=== PATIENT | male | born 1975 | race Caucasian/White ===

== ENCOUNTER 2020-05-11 12:46 | Emergency (ER) | payer MEDICARE, MEDICAID, SELFPAY ==
[2020-05-11 13:47] VITALS: BP 147/92; PULSE 56; RESP 17; TEMP 36.9; O2SAT 97; BMI 30.7
--- NOTE | 2020-05-11 14:25 | ED.WOUNDLAC ---
HPI - Wound/Laceration General Chief Complaint: Wound/Laceration Stated Complaint: suture removal Time Seen by Provider: 05/11/20 14:01 Source: patient Mode of arrival: ambulatory History of Present Illness HPI narrative: 44-year-old male presenting to ED for suture removal to left eyebrow/ chin. Reports fell down the stairs on 05/02, was seen at [facility] were had stitches placed. Denies complaints since wound repair. Denies fever, chills, drainage from area, redness Related Data Allergies Allergy/AdvReac Type Severity Reaction Status Date / Time No Known Allergies Allergy Mild NKA Verified 05/11/20 13:50 Review of Systems Review of Systems: Constitutional: No Weight loss, No Fever, No Chills Gastrointestinal: No Nausea, No Vomiting Musculoskeletal: No joint pain, No Myalgias, No Joint Swelling Skin: No Skin Lesions, No rash, +healing laceration Yes all other systems are reviewed and are negative [facility] Past Medical History Attestation statement: The following information was validated with the patient. Medical History (Updated 05/11/20 @ 14:25 by DRISS Lpoez) No known health problems Social History Social History Advance Directives: No Advance Directives Information Provided: No Physical Exam Vital Signs: Vital Signs: Vital Signs Temp Pulse Resp BP Pulse Ox 05/11/20 13:47 98.5 F 56 17 147/92 H 97 Body Mass Index 30.7 Const: General: cooperative and healthy appearing Orientation/consciousness: patient oriented x3 Limitations: no limitations HENMT: Other: 4 sutures intact to left upper eyelid/ eyebrow & Three sutures intact to chin. appropriate healing. No surrounding erythema, no fluctuance or induration Ears: hearing grossly normal bilaterally General nose exam: Normal external nose present Eyes: General: appearance normal, both eyes and all related structures EOM: EOMs intact bilaterally Neck: Neck: Yes normal visual inspection Neuro: General: patient oriented x3 Gait exam (Neuro): Normal gait present Extrem: General: Yes normal to inspection Discharge Plan Discharge Clinical Impression: Encounter for removal of sutures Patient Disposition: Home, Self-Care Instructions: Stitches Removal (ED) Additional Instructions: your sutures were removed today in the ED Keep area dry and clean You may apply bacitracin /Neosporin He should also apply anti scar cream likely dermal If area begins to look infected, is red, there is drainage, you fever return to the ED Referrals: Gavino Randall MD [Primary Care Provider] - 2 days
== END 2020-05-11 14:51 | disposition home or self-care (01) ==
PROVIDERS: Emergency Provider Emergency Medicine; PCP Internal Medicine
DX: Z48.02 Encounter for removal of sutures (principal); H57.12 Ocular pain, left eye
CPT/HCPCS: 99282

== ENCOUNTER 2020-07-14 10:17 | Inpatient (IN) | payer MEDICARE, MEDICAID, SELFPAY ==
[2020-07-14 10:30] VITALS: BP 147/94; PULSE 82; RESP 16; TEMP 36.9; O2SAT 98; BMI 24.2
[2020-07-14 15:37] LABS: MANUAL DIFF FLAG NO
[2020-07-14 15:39] LABS: Glucose Urine UA 100 MG/DL (NEG); Leukocyte Esterase Urine NEG (NEG); Nitrite Urine NEG (NEG); PH 5.5 (5.0-8.0); Specific Gravity - Urine >= 1.030 (1.005-1.025); Urine Blood NEG (NEG); Urine Ketones 5 MG/DL (NEG); Urine Protein TRACE MG/DL (NEG-TRACE)
[2020-07-14 15:41] LABS: Appearance Urine CLEAR; Color Urine AMBER
[2020-07-14 15:43] LABS: Basophils Percent Auto 0.1 % (0-2); Eosinophils Absolute Auto 0.2 X10*3/uL (0.0-0.4); Eosinophils Percent Auto 2.1 % (0-4); Hematocrit 44.9 % (42-52); Hemoglobin 15.1 g/dl (14.0-18.0); Imm Gran Abs Auto 0.03 X10*3/uL (0.00-0.03); Imm Gran Pct Auto 0.3 % (0.0-0.4); Lymphocytes Absolute Auto 2.7 X10*3/uL (1.2-4.9); Lymphocytes Percent Auto 31.5 % (20-40); Mean Corpuscular HGB Conc 33.6 g/dl (31.0-36.0); Mean Corpuscular Hemoglobin 31.4 pg (27.0-33.0); Mean Corpuscular Volume 93.3 fL (80-98); Mean Platelet Volume 10.1 fL (9.4-12.4); Monocytes Absolute Auto 0.8 X10*3/uL (0.1-1.2); Monocytes Percent Auto 8.7 % (2-11); Neutrophils Percent Auto 57.3 % (45-73); Platelet Count 260 X10*3/uL (160-400); Red Blood Count 4.81 X10*6/uL (4.60-5.80); Red Cell Distribution Width 14.6 % (11.0-16.0); White Blood Count 8.7 X10*3/uL (4.8-10.8)
[2020-07-14 16:02] LABS: Alanine Aminotransferase 423 U/L (0-40); Albumin Level 4.5 g/dL (3.5-5.0); Alkaline Phosphatase 326 U/L (39-117); Anion Gap 14 (12-20); Aspartate Amino Transferase 155 U/L (5-37); Bilirubin Total 14.3 mg/dL (0.0-1.0); Blood Urea Nitrogen 12 mg/dL (9-16); Calcium 9.2 mg/dL (8.4-10.2); Carbon Dioxide 30 mmol/L (22-29); Chloride 100 mmol/L (96-108); Creatinine Clr Calc Pharmacy 83.2; Estimated Glomerular Filt Rate > 60; Glucose Random 90 mg/dL (60-115); Potassium 3.8 mmol/l (3.3-5.1); Sodium 140 mmol/L (135-145); Total Protein 7.7 g/dL (6.5-8.0)
--- NOTE | 2020-07-14 18:22 | CT_ITS ---
EXAMINATION: CT ABDOMEN AND PELVIS WITH CONTRAST CLINICAL INFORMATION: 44-year-old male with elevated liver enzymes. Question gallstones. Question cirrhosis. COMPARISON: Abdominal ultrasound 04/23/[address] abdomen pelvis 12/08/2009 TECHNIQUE: Multidetector volumetric images were obtained from the superior aspect of the liver through the pubic symphysis following administration 85 mL of Omnipaque 350 intravenous contrast. Sagittal and coronal reformatted images were obtained on the technologist's workstation. This CT examination was performed using dose optimization techniques as appropriate, variously including the following: *Automated exposure control *Adjustment of mA and/or kV according to patient size (this includes techniques or standardized protocols for targeted exams where dose is matched to indication/reason for exam; i.e. extremities or head) *Use of iterative reconstruction technique DLP: 603 mGy-cm FINDINGS: Visualized lung bases demonstrate mild dependent atelectasis. Coronary artery calcifications are incompletely visualized. The liver demonstrates normal size, contour and attenuation. There is moderate intrahepatic ductal dilatation of the right and left hepatic lobes. There is significant dilatation of the common bile duct measuring up to 1.5 cm in diameter. The distal common bile duct abruptly transitions to normal caliber in the region of the pancreatic head (coronal image 45/96, series 7). There is mild dilatation of the proximal pancreatic duct. Questionable hypodense lesion of the uncinate process which measures approximately 2.5 x 2.5 cm (axial image 36/98, series 3). The gallbladder is relatively unremarkable in appearance. The spleen and adrenal glands are unremarkable. Symmetrically enhancing kidneys. No hydronephrosis bilaterally. Subcentimeter hypodensity within the upper pole of the left kidney is too small to accurately characterize. Normal caliber loops of small and large bowel. Normal appendix. Nonaneurysmal abdominal aorta. No gross retroperitoneal lymphadenopathy. The bladder is underdistended but grossly unremarkable. The prostate gland is normal in size. Small fat-containing right inguinal hernia. Shotty bilateral inguinal lymph nodes. No gross free pelvic fluid. Mild degenerative changes of the spine. CT/CT abdomen pelvis w con IMPRESSION: Moderate intra and extrahepatic biliary ductal dilatation with questionable mass of the pancreatic head. Further evaluation recommended with MRI/MRCP versus ERCP. Neoplasm not excluded.
[2020-07-14 18:23] VITALS: BP 138/108; PULSE 80; RESP 18; O2SAT 97
--- NOTE | 2020-07-14 18:31 | ED_ITS ---
HPI - Abdominal Pain General Chief Complaint: Abdominal Pain Stated Complaint: abd pain, per pt skin yellow Time Seen by Provider: 07/14/20 18:16 Source: patient Mode of arrival: ambulatory Limitations: no limitations History of Present Illness HPI narrative: Patient presents to ED for yellowish discoloration of skin and yellowish eyes. Patient states also mild abdominal pain. Patient denies any fever, or chills. Patient does acts admits to mild diarrhea. Patient states no history of alcohol abuse. Patient states he only drinks on the weekend. MD elicited complaint: abdominal pain Related Data Home Medications Medication Instructions Recorded Confirmed No Known Home Meds 07/14/20 07/14/20 Allergies Allergy/AdvReac Type Severity Reaction Status Date / Time No Known Allergies Allergy Mild NKA Verified 05/11/20 13:50 Review of Systems Review of Systems Yes all other systems are reviewed and are negative Constitutional: Reports as per HPI and Reports no additional constitutional complaints Eyes: Reports as per HPI and Reports no additional eye complaints Comments: Yellow eyes Reports system reviewed and no additional complaints, except as documented and Reports as per HPI Cardiovascular: Reports as per HPI and Reports no additional cardiovascular complaints Respiratory: Reports as per HPI and Reports no additional respiratory complaints Gastrointestinal: Reports as per HPI and Reports no additional gastrointestinal complaints Musculoskeletal: Reports no additional musculoskeletal complaints and Reports as per HPI Reports system reviewed and no additional complaints, except as documented and Reports as per HPI Psychiatric: Reports no additional psychiatric complaints and Reports as per HPI Physical Exam Vital Signs: Vital Signs: Last Vital Signs Temp 98.5 F 07/14/20 10:30 Pulse 80 07/15/20 00:00 Resp 18 07/15/20 00:00 BP 145/90 H 07/15/20 00:00 Pulse Ox 96 07/15/20 00:00 Body Mass Index 24.2 Const: General: cooperative, healthy appearing, comfortable, no acute distress, well developed, alert, awake and Physically active Orientation/consciousness: patient oriented x3 HENMT: Head: Yes normal to inspection and Yes No palpable skull fracture present Eyes: Other: Patient eyes are icteris Neck: Neck: Yes normal visual inspection, Yes full ROM, Yes no lymphadenopathy, Yes no meningeal signs, Yes trachea midline, Yes supple and No tender Chest: Chest palpation & inspection: normal inspection of the chest and normal palpation of entire chest wall Resp: Effort & Inspection: normal respiratory effort and able to speak in complete sentences Auscultation: clear to auscultation bilaterally Cardio: Jugular venous distension: no JVD Heart sounds: S1 normal heart sound present and S2 normal heart sound present GI: Other: Abdomen nondistended. Negative for any pinpoint tenderness Inspection: Yes normal to inspection and No abdominal wall ecchymosis Palpation (GI): Soft to palpation, not firm, nontender, no guarding and not rigid : General: No CVA tenderness and Yes no CVA tenderness Back/Spine/Pelvis: Back: no CVA tenderness, No CVA tenderness and No back tenderness Skin: Other: Skin is jaundice Neuro: General: patient oriented x3, gait normal, no meningeal signs and CN's II-XI intact bilaterally Cranial nerves: Yes CN's II-XII intact bilaterally Extrem: General: Yes normal to inspection and Yes full ROM Psych: Appearance: grossly normal, well kempt and not disheveled Course Course Course Narrative: Patient is not in distress. Patient liver enzymes elevated. Patient will be sent for abdominal CT scan to rule out any gallstones, cholecystitis, cirrhosis, pancreatitis. His stools are Dariana hepatitis panel will be sent. Patient not any distress. Not suspecting SBP Reevaluation(s) Reevaluation #1: Patient labs show elevated liver enzymes. Patient sent for CT scan to rule out any cholecystitis. CT scan abdomen shows CBD dilation with pancreatic mass. Spoke with Dr. Croft of gastroenterology who recommends patient be admitted to the hospital for ERCP in the morning. Case and accepted by hospitalist. Patient will have COVID swab. Patient given morphine for pain. Time: 00:50 MDM - Abdominal Pain MDM Narrative Medical decision making narrative: Common bile duct dilatation. Jaundice Lab Data Result diagrams: 07/14/20 15:30 07/14/20 15:30 Labs: Lab Results 07/14/20 07/14/20 07/14/20 Range/Units 15:30 15:30 15:30 WBC 8.7 (4.8-10.8) X10*3/uL RBC 4.81 (4.60-5.80) X10*6/uL Hgb 15.1 (14.0-18.0) g/dl Hct 44.9 (42-52) % MCV 93.3 (80-98) fL MCH 31.4 (27.0-33.0) pg MCHC 33.6 (31.0-36.0) g/dl RDW 14.6 (11.0-16.0) % Plt Count 260 (160-400) X10*3/uL MPV 10.1 (9.4-12.4) fL Immature Gran % (Auto) 0.3 (0.0-0.4) % Neut % (Auto) 57.3 (45-73) % Lymph % (Auto) 31.5 (20-40) % [place] % (Auto) 8.7 (2-11) % Eos % (Auto) 2.1 (0-4) % Baso % (Auto) 0.1 (0-2) % Lymph # (Auto) 2.7 (1.2-4.9) X10*3/uL [place] # (Auto) 0.8 (0.1-1.2) X10*3/uL Eos # (Auto) 0.2 (0.0-0.4) X10*3/uL Baso # (Auto) 0.0 (0.0-0.2) X10*3/uL Abs Immat Gran (auto) 0.03 (0.00-0.03) X10*3/uL Absolute Neuts (auto) 5.0 (2.0-8.3) X10*3/uL Absolute Nucleated RBC 0.000 (0.0-0.012) X10*3/uL Nucleated RBC % (auto) 0.0 (0.0-0.2) /100WBC PT 12.9 (10.8-13.0) SEC INR 1.1 (0.9-1.1) APTT 39.1 H (24.1-38.0) SEC Hold Blue Top SEE NOTE Sodium 140 (135-145) mmol/L Potassium 3.8 (3.3-5.1) mmol/l Chloride 100 (96-108) mmol/L Carbon Dioxide 30 H (22-29) mmol/L Anion Gap 14 (12-20) BUN 12 (9-16) mg/dL Creatinine 1.00 (0.5-1.4) mg/dL Estim Creat Clear Calc 83.2 Estimated GFR > 60 Random Glucose 90 (60-115) mg/dL Calcium 9.2 (8.4-10.2) mg/dL Total Bilirubin 14.3 H (0.0-1.0) mg/dL AST 155 H (5-37) U/L ALT 423 H (0-40) U/L Alkaline Phosphatase 326 H (39-117) U/L Total Protein 7.7 (6.5-8.0) g/dL Albumin 4.5 (3.5-5.0) g/dL Urine Color Urine Appearance Urine pH (5.0-8.0) Ur Specific [place] (1.005-1.025) Urine Protein (NEG-TRACE) MG/DL Urine Glucose (UA) (NEG) MG/DL Urine Ketones (NEG) MG/DL Urine Blood (NEG) Urine Nitrite (NEG) Ur Leukocyte Esterase (NEG) 07/14/20 Range/Units 15:30 WBC (4.8-10.8) X10*3/uL RBC (4.60-5.80) X10*6/uL Hgb (14.0-18.0) g/dl Hct (42-52) % MCV (80-98) fL MCH (27.0-33.0) pg MCHC (31.0-36.0) g/dl RDW (11.0-16.0) % Plt Count (160-400) X10*3/uL MPV (9.4-12.4) fL Immature Gran % (Auto) (0.0-0.4) % Neut % (Auto) (45-73) % Lymph % (Auto) (20-40) % [place] % (Auto) (2-11) % Eos % (Auto) (0-4) % Baso % (Auto) (0-2) % Lymph # (Auto) (1.2-4.9) X10*3/uL [place] # (Auto) (0.1-1.2) X10*3/uL Eos # (Auto) (0.0-0.4) X10*3/uL Baso # (Auto) (0.0-0.2) X10*3/uL Abs Immat Gran (auto) (0.00-0.03) X10*3/uL Absolute Neuts (auto) (2.0-8.3) X10*3/uL Absolute Nucleated RBC (0.0-0.012) X10*3/uL Nucleated RBC % (auto) (0.0-0.2) /100WBC PT (10.8-13.0) SEC INR (0.9-1.1) APTT (24.1-38.0) SEC Hold Blue Top Sodium (135-145) mmol/L Potassium (3.3-5.1) mmol/l Chloride (96-108) mmol/L Carbon Dioxide (22-29) mmol/L Anion Gap (12-20) BUN (9-16) mg/dL Creatinine (0.5-1.4) mg/dL Estim Creat Clear Calc Estimated GFR Random Glucose (60-115) mg/dL Calcium (8.4-10.2) mg/dL Total Bilirubin (0.0-1.0) mg/dL AST (5-37) U/L ALT (0-40) U/L Alkaline Phosphatase (39-117) U/L Total Protein (6.5-8.0) g/dL Albumin (3.5-5.0) g/dL Urine Color [place] Urine Appearance CLEAR Urine pH 5.5 (5.0-8.0) Ur Specific [place] >= 1.030 H (1.005-1.025) Urine Protein TRACE (NEG-TRACE) MG/DL Urine Glucose (UA) 100 H (NEG) MG/DL Urine Ketones 5 (NEG) MG/DL Urine Blood NEG (NEG) Urine Nitrite NEG (NEG) Ur Leukocyte Esterase NEG (NEG) Discharge Plan Discharge Clinical Impression: Jaundice, Common bile duct dilatation Patient Disposition: Admitted As Inpatient [facility] Past Medical History Medical History Asthma Social History Social History Alcohol intake: current Alcohol intake frequency: a few times a week Alcohol type: beer and hard liquor Smoking Status: Current every day smoker Use of substances other than those prescribed or required for medical reasons: Yes Substance Use Type: Crack/Cocaine and Marijuana Advance Directives: No Advance Directives Information Provided: Yes
--- NOTE | 2020-07-14 18:31 | PC.NURSE ---
Patient reports two weeks of abdominal pain, worsening over last day. Reports fall one month ago and concerned ever since. Reports hematuria. Abdomen distended and tender on palpation. Patient significantly jaundiced in skin and sclera. Reports drinking heavily on weekends but not a daily drinker. Respirations regular and even. IV established. Kristofer NAQVI at bedside to evaluate.
[2020-07-14] MEDS: 0.9 % Sodium Chloride 1,000 ML 999 ML IV (18:43)
[2020-07-14 18:51] LABS: INTERNATIONAL NORM RATIO 1.1 (0.9-1.1); Prothrombin Time 12.9 SEC (10.8-13.0)
[2020-07-14 18:53] LABS: Partial Thromboplastin Time 39.1 SEC (24.1-38.0)
[2020-07-14] MEDS: iohexoL 350 MG/ML 100 ML INFUS..BTL IV (18:57)
[2020-07-14 20:22] VITALS: BP 136/78; PULSE 78; RESP 16; O2SAT 97
--- NOTE | 2020-07-14 21:21 | PM.EVENT ---
Event Note Date of Service: 07/14/20 Event Note: GI Case discussed with DRISS Bailey. Consult to be done in AM. Presentation is c/w obstructive jaundice secondary to pancreatic head mass, not well defined on CT. Recommend: ERCP/stent tomorrow PM Obtain MRI/MRCP in am to further define pancreas head lesion. NPO after MN. Ca 19-9
[2020-07-14 22:00] VITALS: BP 148/85; PULSE 76; RESP 18; O2SAT 98
[2020-07-14 22:02] VITALS: RESP 18
[2020-07-14] MEDS: Morphine Sulfate 4 MG/ML CARTRIDGE IVPUSH (22:02)
[2020-07-14 23:07] VITALS: BP 120/66; PULSE 70; RESP 16; O2SAT 94
--- NOTE | 2020-07-14 23:36 | PM.IMHP ---
History of Present Illness Date of Service: 07/14/20 Chief Complaint: Jaundince, abdominal pain 44 year old man presented with jaundince. States his girlfriend noticed his skin was yellowing over last 3 days. He has no history of hepatitis and no IV drug use. No fevers/chills, nausea, vomiting. Does have some abdominal pain, though. Never had jaundice before. He does drink alcohol occasionally, states few beers and some nips on weekends but never to excess. No sick contacts with similar symptoms. Review of Systems Review of Systems: Yes all other systems are reviewed and are negative Constitutional: Comments: No fevers or chills Eyes: Comments: Scleral icterus ENT: Comments: No sore throat Cardiovascular: Comments: No chest pain Respiratory: Comments: Nno dyspnea Gastrointestinal: Gastrointestinal: Reports abdominal pain Musculoskeletal: Musculoskeletal: Reports no additional musculoskeletal complaints Psychiatric: Psychiatric: Reports no additional psychiatric complaints [facility] Medical History Asthma Social History Alcohol intake: current Alcohol intake frequency: a few times a week Alcohol type: beer and hard liquor Smoking Status: Current every day smoker Use of substances other than those prescribed or required for medical reasons: Yes Substance Use Type: Crack/Cocaine and Marijuana Advance Directives: No Advance Directives Information Provided: Yes Meds Allergies Allergy/AdvReac Type Severity Reaction Status Date / Time No Known Allergies Allergy Mild NKA Verified 05/11/20 13:50 Home Medications Medication Instructions Recorded Confirmed Type No Known Home Meds 07/14/20 07/14/20 History Physical Exam Vital Signs and Narrative: Vital Signs: Last Vital Signs Temp 98.5 F 07/14/20 10:30 Pulse 70 07/14/20 23:07 Resp 16 07/14/20 23:07 BP 120/66 07/14/20 23:07 Pulse Ox 94 07/14/20 23:07 Body Mass Index 24.2 Const: General: cooperative, comfortable and no acute distress HENMT: Head: Yes normal to inspection Eyes: Other: scleral icterus noted Neck: Yes normal visual inspection and Yes supple Chest: Chest palpation & inspection: normal inspection of the chest Resp: Effort & Inspection: normal respiratory effort Auscultation: clear to auscultation bilaterally Cardio: Rate: regular rate Rhythm: regular rhythm Heart sounds: S1 normal heart sound present and S2 normal heart sound present GI: Other: Soft, nondistended. Tender to palpation in epigastrum and bilataeral lower abdomen areas, normal bowel sounds Inspection: Yes normal to inspection Skin: Other: jaundiced Psych: Appearance: grossly normal Mental Status: mental status grossly normal Results Labs CBC and Chem 7: 07/14/20 15:30 07/14/20 15:30 Labs: Laboratory Results - last 24 hr 07/14/20 07/14/20 07/14/20 15:30 15:30 15:30 MCV 93.3 MCH 31.4 MCHC 33.6 RDW 14.6 Plt Count 260 MPV 10.1 Immature Gran % (Auto) 0.3 Neut % (Auto) 57.3 Lymph % (Auto) 31.5 [place] % (Auto) 8.7 Eos % (Auto) 2.1 Baso % (Auto) 0.1 Lymph # (Auto) 2.7 [place] # (Auto) 0.8 Eos # (Auto) 0.2 Baso # (Auto) 0.0 Abs Immat Gran (auto) 0.03 Absolute Neuts (auto) 5.0 Absolute Nucleated RBC 0.000 Nucleated RBC % (auto) 0.0 PT 12.9 INR 1.1 APTT 39.1 H Hold Blue Top SEE NOTE Anion Gap 14 Estim Creat Clear Calc 83.2 Estimated GFR > 60 Random Glucose 90 Calcium 9.2 Total Bilirubin 14.3 H AST 155 H ALT 423 H Alkaline Phosphatase 326 H Total Protein 7.7 Albumin 4.5 Urine Color Urine Appearance Urine pH Ur Specific [place] Urine Protein Urine Glucose (UA) Urine Ketones Urine Blood Urine Nitrite Ur Leukocyte Esterase 07/14/20 15:30 MCV MCH MCHC RDW Plt Count MPV Immature Gran % (Auto) Neut % (Auto) Lymph % (Auto) [place] % (Auto) Eos % (Auto) Baso % (Auto) Lymph # (Auto) [place] # (Auto) Eos # (Auto) Baso # (Auto) Abs Immat Gran (auto) Absolute Neuts (auto) Absolute Nucleated RBC Nucleated RBC % (auto) PT INR APTT Hold Blue Top Anion Gap Estim Creat Clear Calc Estimated GFR Random Glucose Calcium Total Bilirubin AST ALT Alkaline Phosphatase Total Protein Albumin Urine Color [place] Urine Appearance CLEAR Urine pH 5.5 Ur Specific [place] >= 1.030 H Urine Protein TRACE Urine Glucose (UA) 100 H Urine Ketones 5 Urine Blood NEG Urine Nitrite NEG Ur Leukocyte Esterase NEG Imaging Radiologist's Impressions: Impressions Abdomen/Pelvis CT 07/14/20 18:22 IMPRESSION: Moderate intra and extrahepatic biliary ductal dilatation with questionable mass of the pancreatic head. Further evaluation recommended with MRI/MRCP versus ERCP. Neoplasm not excluded. Assessment and Plan (1) Jaundice: Status: Acute 58 year old man with jaundice. Jaundice. Does have some pain but clinical picture is concerning given the CT scan findings of dilated bile duct. GI consult for ERCP placed to eval for obstruction and possible pancreatic neoplasm. Will trend LFTs and also check viral hepatitis labs. States regalado snot consume a lot of alcohol so doubt this is related to ETOH. NPo after midnight. Morphine prn pain. DVT proph SC Lovenox
[2020-07-15] VITALS (12 sets, daily range): BP systolic 131–155; BP diastolic 83–99; PULSE 59–80; RESP 16–20; TEMP 36.2–36.7; O2SAT 94–99; BMI 24.2
--- NOTE | 2020-07-15 | MR_ITS ---
EXAMINATION: MR ABDOMEN WITHOUT AND WITH CONTRAST CLINICAL INFORMATION: Question pancreatic head mass COMPARISON: Previous CT of the abdomen and pelvis from yesterday and abdominal ultrasound April 2013 TECHNIQUE: MR abdomen was performed without and with use of 7 mL intravenous Gadavist gadolinium contrast. Postcontrast images are performed in multiphase dynamic sequences. Imaging was performed in 3 planes. FINDINGS: LUNG BASES: The visualized lung bases are unremarkable. LIVER, GALLBLADDER, AND BILIARY TREE: The liver is normal in size, smooth in contour, and normal in signal. No focal hepatic lesion. There is moderate intra and extrahepatic biliary duct dilatation. The common bile duct measures up to 1.5 cm and is dilated down to the head of the pancreas. The gallbladder is upper normal in size. No gallstones are seen. The gallbladder wall does not appear thickened. PANCREAS: There is dilatation of the main pancreatic duct in the head of the pancreas measuring up to 6 mm. There is a area of heterogeneous signal in the head of the pancreas. This is low signal on T1-weighted sequences, slightly high signal on T2-weighted sequences and demonstrates decreased enhancement compared to the remainder of the pancreas. This measures up to 2.2 x 3.4 cm axial image 62 series 100 postcontrast and is continuous with the abnormal soft tissue signal adjacent to the SMA. The peripancreatic fat is otherwise normal. No peripancreatic fluid collection is seen. SPLEEN: Normal. ADRENAL GLANDS: Normal. KIDNEYS AND URETERS: The kidneys are normal in size, shape, and enhance symmetrically. There are small bilateral renal cysts largest measuring 1 cm exophytic to the upper pole of the left kidney. No hydronephrosis. No perinephric stranding. GASTROINTESTINAL TRACT: No bowel obstruction. No ascites or fluid collection. ABDOMINAL WALL: There is a small upper ventral hernia containing fat. LYMPH NODES: There are no enlarged lymph nodes. There is a small periportal lymph node that measures 7 x 10 mm for example axial image 43 postcontrast. There is no ascites. VASCULAR: Unremarkable. OSSEOUS STRUCTURES: Marrow signal normal. MR/MR abdomen wo/w con IMPRESSION: Intrahepatic and extrahepatic biliary duct dilatation and dilatation of the main pancreatic duct in the head of the pancreas. Upper normal-size gallbladder. Abnormal signal and enhancement in the uncinate process of the head of the pancreas measuring up to 2.2 x 3.4 cm. This is continuous with abnormal soft tissue that surrounds the SMA. Appearance is concerning for primary pancreatic neoplasm/adenocarcinoma of the pancreas. Differential would include focal pancreatitis.
[2020-07-15 01:06] LABS: Influenza A PCR NEGATIVE (Negative); Influenza B PCR NEGATIVE (Negative); Resp Syncy Virus RNA Qual PCR NEGATIVE (Negative); SARS COV2 PCR INHOUSE NEGATIVE (Negative)
[2020-07-15] MEDS: Morphine Sulfate 4 MG/ML CARTRIDGE IVPUSH ×3 (01:31→09:14)
--- NOTE | 2020-07-15 01:49 | PC.NURSE ---
pt teaching npo after midnight. pt states his pain level in improved down to a 6/10
[2020-07-15] MEDS: 0.9 % Sodium Chloride 1,000 ML 100 ML IVCONT (04:24)
[2020-07-15] MEDS: Enoxaparin Sodium 40 MG/0.4 ML SYRINGE SUBCUT (05:30)
[2020-07-15] MEDS: 0.9 % Sodium Chloride Flush 3 ML SYRINGE IVFLUSH (05:30)
[2020-07-15 07:19] LABS: Alanine Aminotransferase 311 U/L (0-40); Alkaline Phosphatase 259 U/L (39-117); Aspartate Amino Transferase 109 U/L (5-37); Bilirubin Total 11.9 mg/dL (0.0-1.0)
[2020-07-15 08:24] LABS: HBsAGNum1 0.14 S/CO (0.00-0.99); Hepatitis B Surface Antigen Negative (Negative); ~HepC Num1 0.07 S/CO (0.00-0.79); ~Hepatitis A Antibody IgM Nonreactive (Nonreactive); ~Hepatitis C Antibody Nonreactive (Nonreactive)
[2020-07-15 08:26] LABS: HBS Num1 0.94 mIU/mL (0-7.99); HBc Num1 0.19 S/CO (0.00-0.79); Hepatitis B Core Antibody Nonreactive (Nonreactive); ~Hepatitis B Surface Antibody NONREACTIVE (Nonreactive)
--- NOTE | 2020-07-15 08:55 | MHC.SHP ---
Pre-Procedural Eval Section A The patient is an INPATIENT: Yes Changes since office visit: No Cold of Flu in the past 2 weeks, No New Medical Problems, No Changes in Medication and No Patient answered all questions The History & Physical has been completed within 30 days and I have reviewed it.: Yes Section B Chief Complaint: Jaundice Allergies: Allergies Allergy/AdvReac Type Severity Reaction Status Date / Time No Known Allergies Allergy Mild NKA Verified 05/11/20 13:50 Plan I have reviewed the history and physical and performed a pertinent physical examination on my patient. No changes have occurred unless specified.
--- NOTE | 2020-07-15 08:55 | PM.EVENT ---
Event Note Date of Service: 07/15/20 Event Note: Patient seen and examined in MRI this am. Full note to follow. Discussed ERCP with stent placement. He is aware of risks and benefits and agrees to proceed.
--- NOTE | 2020-07-15 10:37 | HO.PM.IMPN ---
Subjective Subjective Date of Service: 07/15/20 Interval History: Seen in follow-up for jaundice, dilated CBD. Patient has persistent pain jaundice. Is plan for ERCP later today. Review of Systems Gen: no fever Resp: no sob, no cough CV: no chest, no CABA, no leg edema GI: No nausea vomiting but abdominal pain. Neuro: No confusion Physical Exam Vital Signs: Vital Signs: Last Vital Signs Temp 97.9 F 07/15/20 08:00 Pulse 73 07/15/20 08:00 Resp 18 07/15/20 08:00 BP 145/88 H 07/15/20 08:00 Pulse Ox 96 07/15/20 08:00 Body Mass Index 24.2 General: AO X 3, no acute distress HEENT: Sclerae icterus Resp: CTA bilateral CVS: S1,S2,RRR GI: +BS, white upper quadrant tenderness Skin: No rash--signs of jaundice Neuro: motor grossly intact Psych: appropriate affect Objective Data Current Medications Generic Name Dose Route Start Last Admin Trade Name Freq PRN Reason Stop Dose Admin Enoxaparin Sodium 40 mg 07/15/20 05:00 07/15/20 05:30 Enoxaparin Sodium 40 Mg/0.4 Ml Syringe SUBCUT 40 mg Q24H HOOD Administration Sodium Chloride 1,000 mls @ 100 mls/hr 07/15/20 04:04 07/15/20 04:24 Ns IVCONT 100 mls/hr .Q10H HOOD Administration Morphine Sulfate 2 mg 07/14/20 23:47 Morphine Sulfate 2 Mg/Ml Cartridge IVPUSH RQ4H PRN Pain, Moderate (Pain Scale 4-6 Morphine Sulfate 4 mg 07/14/20 23:47 07/15/20 09:14 Morphine Sulfate 4 Mg/Ml Cartridge IVPUSH 4 mg RQ4H PRN Administration Pain, Severe (Pain Scale 7-10) Sodium Chloride 3 ml 07/15/20 04:04 07/15/20 07:26 0.9 % Sodium Chloride Flush 3 Ml Syringe IVFLUSH Not Given QSHIFT HOOD Labs CBC & Chem 7: 07/14/20 15:30 07/14/20 15:30 Assessment and Plan (1) Jaundice: Status: Acute Assessment and Plan: 44/F year old man with jaundice. Jaundice. Does have some pain but clinical picture is concerning given the CT scan findings of dilated bile duct. GI will do ERCP today to eval for obstruction and possible pancreatic neoplasm vs choledocholithiasis. Will trend LFTs and also check viral hepatitis labs. States caba snot consume a lot of alcohol so doubt this is related to ETOH. Morphine for pain. DVT proph SC Lovenox
--- NOTE | 2020-07-15 11:25 | MHC.RECOVSUP ---
Recovery Support note: Patient is a 44 year old Ethiopian speaking male who [place] [facility] [place] due to [place]und[place] and was medically admitted. This director underwriter sales met with patient in [phone] to discuss his substance use. Patient reports occasional alcohol use, states he drinks about four beers on the weekend. Patient states his drinking is not problematic at this time and that if he did feel it was problematic, he has family and friends he can reach out to for support, specifically his sister. Patient reports he uses cocaine once in a million, meaning his cocaine use is extremely rare. Patient acknowledges that repeated use of substances can be detrimental to his health. Patient reports his cocaine use is so minimal that he does not feel it is problematic. Discussed case with patient's RN, Hoda.
[2020-07-15] MEDS: levoFLOXacin/D5W 500 MG/100 ML PIGGYBACK 100 MG IV (12:12)
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
--- NOTE | 2020-07-15 12:27 | FL_ITS ---
EXAMINATION: XR FLUOROSCOPY WITH IMAGES CLINICAL INFORMATION: Biliary and pancreatic ductal dilatation COMPARISON: MRI abdomen without and with contrast 07/15/2020 TECHNIQUE: Fluoroscopy performed by Dr. Price Croft. Fluoroscopy time: 3.9 minutes Total dose: 64.24 mGy Images: 1 FINDINGS: There is an endoscope in the right upper quadrant with short catheter in region of duct. FL/FL guidance in OR IMPRESSION: Fluoroscopy for gastroenterology procedure.
--- NOTE | 2020-07-15 12:41 | HO.ANESPROP2 ---
HPI - Anesthesia Eval Consult details Narrative: 44 M w/ polysubstance use d/o p/f ERCP under [facility] Past Medical History Medical History Asthma Social History Social History Household Members: Significant Other Housing: House Do you presently have visiting nurse or other home services: No Alcohol intake: current Alcohol intake frequency: a few times a week Alcohol type: beer and hard liquor Smoking Status: Current every day smoker Use of substances other than those prescribed or required for medical reasons: Yes Substance Use Type: Marijuana Have you been hit, kicked, punched, or otherwise hurt by someone within the past year? If so, by whom?: No Do you feel safe in your current relationship?: Yes Is there a partner from a previous relationship who is making you feel unsafe now?: No Are you made to feel afraid or neglected: No Advance Directives: No Advance Directives Information Provided: Yes Do you have thoughts of harming others: None Do you have a plan to hurt others: No Plan Recently lost weight without trying: No service: No Current occupational status: disabled Meds Allergies Allergy/AdvReac Type Severity Reaction Status Date / Time No Known Allergies Allergy Mild NKA Verified 05/11/20 13:50 Home Medications Medication Instructions Recorded Confirmed Type No Known Home Meds 07/14/20 07/14/20 History Exam Exam Date and Time: July 15, 2020 1241 Height,Weight and Vital Signs: Height 5 ft 6 in Weight 68.039 kg Last Vital Signs Temp 98.1 F 07/15/20 12:12 Pulse 59 07/15/20 12:12 Resp 16 07/15/20 12:12 BP 154/86 H 07/15/20 12:12 Pulse Ox 96 07/15/20 12:12 Pertinent Lab Results Pertinent Lab Results: Laboratory Tests 07/14/20 07/14/20 07/14/20 15:30 15:30 15:30 WBC 8.7 RBC 4.81 Hgb 15.1 Hct 44.9 MCV 93.3 MCH 31.4 MCHC 33.6 RDW 14.6 Plt Count 260 MPV 10.1 Immature Gran % (Auto) 0.3 Neut % (Auto) 57.3 Lymph % (Auto) 31.5 [place] % (Auto) 8.7 Eos % (Auto) 2.1 Baso % (Auto) 0.1 Lymph # (Auto) 2.7 [place] # (Auto) 0.8 Eos # (Auto) 0.2 Baso # (Auto) 0.0 Abs Immat Gran (auto) 0.03 Absolute Neuts (auto) 5.0 Absolute Nucleated RBC 0.000 Nucleated RBC % (auto) 0.0 PT 12.9 INR 1.1 APTT 39.1 H Hold Blue Top SEE NOTE Sodium 140 Potassium 3.8 Chloride 100 Carbon Dioxide 30 H Anion Gap 14 BUN 12 Creatinine 1.00 Estim Creat Clear Calc 83.2 Estimated GFR > 60 Random Glucose 90 Calcium 9.2 Total Bilirubin 14.3 H AST 155 H ALT 423 H Alkaline Phosphatase 326 H Total Protein 7.7 Albumin 4.5 Urine Color Urine Appearance Urine pH Ur Specific [place] Urine Protein Urine Glucose (UA) Urine Ketones Urine Blood Urine Nitrite Ur Leukocyte Esterase Coronavirus (PCR) Hepatitis A IgM Ab Hep Bs Antigen Hep Bs Antibody Hep B Core Total Ab Hepatitis C Ab (EIA) Influenza Type A (PCR) Influenza Type B (PCR) RSV RNA Qual (PCR) 07/14/20 07/15/20 07/15/20 15:30 00:12 05:56 WBC RBC Hgb Hct MCV MCH MCHC RDW Plt Count MPV Immature Gran % (Auto) Neut % (Auto) Lymph % (Auto) [place] % (Auto) Eos % (Auto) Baso % (Auto) Lymph # (Auto) [place] # (Auto) Eos # (Auto) Baso # (Auto) Abs Immat Gran (auto) Absolute Neuts (auto) Absolute Nucleated RBC Nucleated RBC % (auto) PT INR APTT Hold Blue Top Sodium Potassium Chloride Carbon Dioxide Anion Gap BUN Creatinine Estim Creat Clear Calc Estimated GFR Random Glucose Calcium Total Bilirubin 11.9 H AST 109 H ALT 311 H Alkaline Phosphatase 259 H D Total Protein Albumin Urine Color GALILEA Urine Appearance CLEAR Urine pH 5.5 Ur Specific [place] >= 1.030 H Urine Protein TRACE Urine Glucose (UA) 100 H Urine Ketones 5 Urine Blood NEG Urine Nitrite NEG Ur Leukocyte Esterase NEG Coronavirus (PCR) NEGATIVE Hepatitis A IgM Ab Hep Bs Antigen Hep Bs Antibody Hep B Core Total Ab Hepatitis C Ab (EIA) Influenza Type A (PCR) NEGATIVE Influenza Type B (PCR) NEGATIVE RSV RNA Qual (PCR) NEGATIVE 07/15/20 05:56 WBC RBC Hgb Hct MCV MCH MCHC RDW Plt Count MPV Immature Gran % (Auto) Neut % (Auto) Lymph % (Auto) [place] % (Auto) Eos % (Auto) Baso % (Auto) Lymph # (Auto) [place] # (Auto) Eos # (Auto) Baso # (Auto) Abs Immat Gran (auto) Absolute Neuts (auto) Absolute Nucleated RBC Nucleated RBC % (auto) PT INR APTT Hold Blue Top Sodium Potassium Chloride Carbon Dioxide Anion Gap BUN Creatinine Estim Creat Clear Calc Estimated GFR Random Glucose Calcium Total Bilirubin AST ALT Alkaline Phosphatase Total Protein Albumin Urine Color Urine Appearance Urine pH Ur Specific [place] Urine Protein Urine Glucose (UA) Urine Ketones Urine Blood Urine Nitrite Ur Leukocyte Esterase Coronavirus (PCR) Hepatitis A IgM Ab Nonreactive Hep Bs Antigen Negative Hep Bs Antibody NONREACTIVE Hep B Core Total Ab Nonreactive Hepatitis C Ab (EIA) Nonreactive Influenza Type A (PCR) Influenza Type B (PCR) RSV RNA Qual (PCR) Airway Mallampati Class: II TM Dist: >3cm Neck ROM: Full Loose/Missing/Broken Teeth: No Heart: RRR Lungs: NL Other: AO Assessment and Plan Assessment Anesthesia Assessment: Anesthesia Plan Discussed and Chart Reviewed Final Anesthetic Review NPO: Yes ASA Class: III Final Preanesthetic Review: No Changes in Pt Med Stat, Meds/Allgs Chart Reviewed, Consent Obtained/Reviewed and Anes Risks/Benef Reviewed Patient Risk: Intermediate Procedure Risk: Intermediate Anesthetic Plan Anesthetic Plan: GA Disposition: Standard PACU
--- NOTE | 2020-07-15 13:57 | PM.EVENT ---
Event Note Date of Service: 07/15/20 Event Note: ERCP note dictated CBD could not be accessed. Guidewire did enter pancreatic duct on several occasions, by fluoroscopy. No dye injection performed. Will plan on transfer to [facility] for repeat ERCP. Discussed with Dr Urbina at [facility].
--- NOTE | 2020-07-15 14:01 | PM.OP ---
Brief Operative Note Date of Service: 07/15/20 Pre-op diagnosis: pancereatic mass, obstructive jaundice. Post-op diagnosis: same Procedure: ERCP Surgeon: Price Croft Anesthesia: GETA Estimated blood loss (mL): 0 Pathology: none sent Condition: stable Disposition: PACU
--- NOTE | 2020-07-15 15:42 | PC.NURSE ---
P-patient will leave AMA I-dr. Leonard notified of the above E-patient made aware of need for antibiotics,
--- NOTE | 2020-07-15 15:54 | PM.DS ---
DS: Providers Provider Date of admission: 07/15/20 02:33 Primary care physician: Gavino Randall MD Consults: 07/14/20 23:47 Consult to Gastroenterology Routine Consulting Provider: Price Croft Reason for consultation: jaundice Has provider been notified: Yes 07/15/20 08:55 Consult to Care Team Routine Comment: Reason for consultation: etoh use with dx of jaundice, admitts to crack cocaine and marijuana DS: Diagnosis Discharge Diagnosis (1) Jaundice: Status: Acute (2) Common bile duct dilatation: Status: Acute DS: Medications Discharge Medications Home Medications: Home Medications Medication Instructions Recorded Confirmed No Known Home Meds 07/14/20 07/14/20 Previous Rx's Medication Instructions Recorded oxycodone 5 mg PO Q6H PRN #14 tab 07/15/20 DS: Summary Hospital Course Hospital Course: Patient was admitted because of obstructive jaundice. MRI showed Intrahepatic and extrahepatic biliary duct dilatation and dilatation of the main pancreatic duct in the head of the pancreas. Upper normal-size gallbladder. Abnormal signal and enhancement in the uncinate process of the head of the pancreas measuring up to 2.2 x 3.4 cm. This is continuous with abnormal soft tissue that surrounds the SMA. Appearance is concerning for primary pancreatic neoplasm/adenocarcinoma of the pancreas. Differential would include focal pancreatitis. Dr. Croft attempted ERCP but was unsucesfull and recommended that patient be transfer to [facility] for another attempt more resources. He refuses to stay in hospital or be transfer to [facility] and sign out again Medical exam. He was told of the risk of getting worse and possible becoming septic and even dying. He is sternly advised to come to ED or call 911 with fever, cofusion and increasing abdominal pain. Empiric Levaquin has been sent to the pharmacy for him. Time Spent with Patient Time attestation: Total time spent providing and/or coordinating discharge services: Physical Exam Vital Signs: Vital Signs: Last Vital Signs Temp 98 F 07/15/20 15:05 Pulse 73 07/15/20 15:05 Resp 18 07/15/20 15:05 BP 134/90 H 07/15/20 15:05 Pulse Ox 94 07/15/20 15:05 Body Mass Index 24.2 DS: Data Data Completed and Pending Labs on day of discharge: 07/14/20 15:30 Complete Blood Count Auto Diff Stat Comprehensive Met. Panel Stat Hold Lt Blue - Possible Coag Stat Partial Thromboplastin Time Stat Prothrombin Time INR Stat UA CC w/rflx Micro + Cult Stat 07/14/20 18:22 CT abdomen pelvis w con Stat 0.9 % Sodium Chloride [Ns] 1,000 ml IV 999 mls/hr 07/14/20 18:46 Add Laboratory Test Stat 07/14/20 18:57 iohexoL 350 MG/ML [Omnipaque 350 MG/ML] 100 ml IV ONCE ONE 07/14/20 21:59 Morphine Sulfate 4 mg IVPUSH ONCE STA 07/14/20 23:07 SARS-CoV2/FLU/RSV Stat 07/14/20 23:46 Transfer Order Routine 07/14/20 23:47 Alanine Aminotransferase Routine Alkaline Phosphatase Routine Aspartate Amino Transferase Routine Bilirubin Total Routine Hepatitis A,B,C Profile Stat 07/15/20 MR abdomen wo/w con Urgent 07/15/20 05:00 Enoxaparin Sodium [Lovenox] 40 mg SUBCUT Q24H 07/15/20 08:29 GadobutroL [Gadavist] 7.5 ml IVPUSH ONCE ONE 07/15/20 08:52 levoFLOXacin/D5W [Levaquin] 500 mg in 100 ml IV PREOP 07/15/20 12:01 levoFLOXacin/D5W [Levaquin] 500 mg in 100 ml IV As directed 07/15/20 12:27 Lidocaine HCl 2 % MPF [Xylocaine 2 % MPF] 5 ml .ROUTE .STK-MED ONE propofoL [Diprivan] 200 mg IVPUSH .STK-MED ONE 07/15/20 12:29 Midazolam HCl/PF [Versed] 2 mg .ROUTE .STK-MED ONE fentaNYL citrate/PF [Sublimaze] 50 mcg .ROUTE .STK-MED ONE 07/15/20 12:33 Glucagon,Human Recombinant [Glucagen] 1 mg .ROUTE .STK-MED ONE iohexoL 300 MG/ML [Omnipaque 300 MG/ML] 50 ml IV .STK-MED ONE 07/15/20 13:07 Phenylephrine HCL 1,000 mcg IVPUSH .STK-MED ONE dexAMETHasone sod phosphate [Decadron] 4 mg .ROUTE .STK-MED ONE ondansetron HCL [Zofran] 4 mg .ROUTE .STK-MED ONE propofoL [Diprivan] 200 mg IVPUSH .STK-MED ONE 07/15/20 13:14 Sugammadex Sodium [Bridion] 200 mg IVPUSH .STK-MED ONE 07/15/20 13:54 Transfer Order Routine Laboratory Last Values WBC 8.7 X10*3/uL (4.8-10.8) 07/14/20 15:30 RBC 4.81 X10*6/uL (4.60-5.80) 07/14/20 15:30 Hgb 15.1 g/dl (14.0-18.0) 07/14/20 15:30 Hct 44.9 % (42-52) 07/14/20 15:30 MCV 93.3 fL (80-98) 07/14/20 15: MCH 31.4 pg (27.0-33.0) 07/14/20 15: MCHC 33.6 g/dl (31.0-36.0) 07/14/20 15:30 RDW 14.6 % (11.0-16.0) 07/14/20 15:30 Plt Count 260 X10*3/uL (160-400) 07/14/20 15:30 MPV 10.1 fL (9.4-12.4) 07/14/20 15:30 Immature Gran % (Auto) 0.3 % (0.0-0.4) 07/14/20 15: Neut % (Auto) 57.3 % (45-73) 07/14/20 15:30 Lymph % (Auto) 31.5 % (20-40) 07/14/20 15:30 [place] % (Auto) 8.7 % (2-11) 07/14/20 15:30 Eos % (Auto) 2.1 % (0-4) 07/14/20 15: Baso % (Auto) 0.1 % (0-2) 07/14/20 15:30 Lymph # (Auto) 2.7 X10*3/uL (1.2-4.9) 07/14/20 15:30 [place] # (Auto) 0.8 X10*3/uL (0.1-1.2) 07/14/20 15:30 Eos # (Auto) 0.2 X10*3/uL (0.0-0.4) 07/14/20 15:30 Baso # (Auto) 0.0 X10*3/uL (0.0-0.2) 07/14/20 15:30 Abs Immat Gran (auto) 0.03 X10*3/uL (0.00-0.03) 07/14/20 15:30 Absolute Neuts (auto) 5.0 X10*3/uL (2.0-8.3) 07/14/20 15:30 Absolute Nucleated RBC 0.000 X10*3/uL (0.0-0.012) 07/14/20 15:30 Nucleated RBC % (auto) 0.0 /100WBC (0.0-0.2) 07/14/20 15:30 PT 12.9 SEC (10.8-13.0) 07/14/20 15:30 INR 1.1 (0.9-1.1) 07/14/20 15:30 APTT 39.1 SEC (24.1-38.0) H 07/14/20 15:30 Hold Blue Top SEE NOTE 07/14/20 15:30 Sodium 140 mmol/L (135-145) 07/14/20 15:30 Potassium 3.8 mmol/l (3.3-5.1) 07/14/20 15:30 Chloride 100 mmol/L (96-108) 07/14/20 15:30 Carbon Dioxide 30 mmol/L (22-29) H 07/14/20 15:30 Anion Gap 14 (12-20) 07/14/20 15:30 BUN 12 mg/dL (9-16) 07/14/20 15:30 Creatinine 1.00 mg/dL (0.5-1.4) 07/14/20 15:30 Estim Creat Clear Calc 83.2 07/14/20 15:30 Estimated GFR > 60 07/14/20 15:30 Random Glucose 90 mg/dL (60-115) 07/14/20 15:30 Calcium 9.2 mg/dL (8.4-10.2) 07/14/20 15:30 Total Bilirubin 11.9 mg/dL (0.0-1.0) H 07/15/20 05:56 AST 109 U/L (5-37) H 07/15/20 05:56 ALT 311 U/L (0-40) H 07/15/20 05:56 Alkaline Phosphatase 259 U/L (39-117) H D 07/15/20 05:56 Total Protein 7.7 g/dL (6.5-8.0) 07/14/20 15:30 Albumin 4.5 g/dL (3.5-5.0) 07/14/20 15:30 Urine Color GALILEA 07/14/20 15:30 Urine Appearance CLEAR 07/14/20 15:30 Urine pH 5.5 (5.0-8.0) 07/14/20 15:30 Ur Specific [place] >= 1.030 (1.005-1.025) H 07/14/20 15:30 Urine Protein TRACE MG/DL (NEG-TRACE) 07/14/20 15:30 Urine Glucose (UA) 100 MG/DL (NEG) H 07/14/20 15:30 Urine Ketones 5 MG/DL (NEG) 07/14/20 15:30 Urine Blood NEG (NEG) 07/14/20 15:30 Urine Nitrite NEG (NEG) 07/14/20 15:30 Ur Leukocyte Esterase NEG (NEG) 07/14/20 15:30 Coronavirus (PCR) NEGATIVE (Negative) 07/15/20 00:12 Hepatitis A IgM Ab Nonreactive (Nonreactive) 07/15/20 05:56 Hep Bs Antigen Negative (Negative) 07/15/20 05:56 Hep Bs Antibody NONREACTIVE (Nonreactive) 07/15/20 05:56 Hep B Core Total Ab Nonreactive (Nonreactive) 07/15/20 05:56 Hepatitis C Ab (EIA) Nonreactive (Nonreactive) 07/15/20 05:56 Influenza Type A (PCR) NEGATIVE (Negative) 07/15/20 00:12 Influenza Type B (PCR) NEGATIVE (Negative) 07/15/20 00:12 RSV RNA Qual (PCR) NEGATIVE (Negative) 07/15/20 00:12 Discharge Plan Discharge Anticipated Discharge Date/Time: 07/15/20 15:41 Patient Disposition: Left Against Medical Advice Referrals: Gavino Randall MD [Primary Care Provider] - Discharge Medications: New oxycodone 5 mg tablet 5 mg PO Q6H PRN (Reason: pain) Qty: 14 RF: 0 levofloxacin 500 mg tablet 500 mg PO DAILY 10 Days Qty: 10 RF: 0 No Action No Known Home Meds RF: 0 Discharge Orders: Discharge Order (Routine); Ordered 07/15/20 Ordered By: Pra[facility] Care Plan Goals: To figure out what is causing the jaundice Health Concerns: Jaundice and tumor near pancreas Plan of Treatment: You understand you leaving against medical advise and may get worse and possibly even . You need to follow up with Dr. Croft and Take Mitchel as directeed
--- NOTE | 2020-07-15 16:04 | MHC.CM.PN ---
nurse care management notified by staff nurse that patient sighned out [facility] medical advice , even after talking with the hospitlaist / patient had his ercp today and they found an mass patient was to be transferred to [facility] for further work up with dr wilson , he also met with a member of the care team. and per their documentation he did not feel his etoh consumtpion or drug use was a problem pTIENT SIGNED OUT AGAINST MEDICAL ADVICE
--- NOTE | 2020-07-15 16:23 | OP_ITS ---
SURGEON: Price Croft MD INDICATIONS: Obstructive jaundice with pancreatic uncinate process mass. PREOPERATIVE DIAGNOSIS: POSTOPERATIVE DIAGNOSIS: PROCEDURE PERFORMED: ERCP. ESTIMATED BLOOD LOSS: COMPLICATIONS: ANESTHESIA: ASSISTANTS: SPECIMENS: MEDICATIONS: Monitored anesthesia care. DESCRIPTION OF PROCEDURE: History and physical performed. The risks and benefits of the procedure were explained to the patient. Informed consent was obtained. The patient was placed in the prone position with a wedge under the right shoulder. The Olympus therapeutic duodenoscope was introduced into the esophagus, stomach, and duodenum. Examination was performed and the scope was removed. He tolerated the procedure well and was taken to recovery area in stable condition. FINDINGS: ENDOSCOPY: Limited examination of the esophagus, stomach, and duodenum was remarkable for duodenitis. There was some bulging of the major papilla, but no drainage of bile. A sphincterotome and guidewire were used to attempt cholangiography, which was unsuccessful. The guidewire was passed into the pancreatic duct on several occasions as judged by fluoroscopic imaging. No injection of the pancreatic duct was made. No cholangiogram was obtained. IMPRESSION: Pancreatic mass. RECOMMENDATION: Referral to [facility] for repeat ERCP with definitive therapy. MD LUKAS Carrillo/ADEOLA / [id number]
--- NOTE | 2020-07-15 16:28 | CONS_ITS ---
DATE OF SERVICE: 07/15/2020 REFERRING PHYSICIAN: DRISS Bailey HISTORY OF PRESENT ILLNESS: The patient is a pleasant 44-year-old man, who was admitted to the hospital after presenting to the emergency room with complaints of jaundice. Symptoms have been present for about 2 weeks. He has noted some dark urine as well and some postprandial abdominal discomfort, which has been generalized. There has been no nausea or vomiting. He believes he has lost about 40 pounds in the past month. He denies any history of intravenous drug usage or hepatitis. He was evaluated in the emergency department with laboratory studies showing elevation of his liver function tests with a total bilirubin of 14, AST of 155, and ALT of 423, alkaline phosphatase was also elevated. Subsequently, he underwent CT scanning of the abdomen and pelvis, which is a limited study, but shows moderate intra and extrahepatic biliary ductal dilation with a questionable mass in the head of the pancreas. The pancreatic duct seems dilated to my review. MRCP is scheduled for this morning. PAST MEDICAL HISTORY: Asthma. CURRENT MEDICATIONS: His current medication list is reviewed in the chart. ALLERGIES: THERE ARE NONE REPORTED. FAMILY HISTORY: Positive for pancreatic cancer in his mother by his report. SOCIAL HISTORY: He does smoke. He drinks alcohol several times per week. He also reports marijuana and cocaine usage. REVIEW OF SYSTEMS: SKIN: No pruritus. HEENT: Negative. CARDIOPULMONARY: He denies shortness of breath or chest pain. GASTROINTESTINAL: As above. GENITOURINARY: Negative. NEUROPSYCHIATRIC: Negative. PHYSICAL EXAMINATION: GENERAL: Shows a pleasant male, lying comfortably in bed. SKIN: Icteric. HEENT: Shows scleral icterus. NECK: Without lymphadenopathy or thyromegaly. LUNGS: Clear. HEART: Regular rate and rhythm. S1, S2. No murmur. ABDOMEN: Soft without focal masses or tenderness. Bowel sounds are present. No organomegaly is noted. EXTREMITIES: Without edema. LABORATORY DATA: Reviewed as is his CAT scan. IMPRESSION: Obstructive jaundice. This is concerning for an underlying pancreatic head malignancy based on his CT scan, which is a limited study given the lack of contrast. I have recommended MRCP and MRI of the pancreas with contrast to further evaluate the pancreas. I have discussed the ERCP with him including risks and benefits. He understands these and agrees to proceed. This will be scheduled for later this afternoon. Thanks for asking me to see him. I will follow him in the hospital with you. MD LUKAS Carrillo/ADEOLA / [id number]
[2020-07-16 12:52] LABS: Carbohydrate Antigen 19-9 55 U/mL (<34)
== END 2020-07-15 15:40 | disposition left against medical advice (07) | DRG 437 ==
LOC: HO.ED 07-15 00:51 → HO.S3 07-15 02:33
PROVIDERS: Internal Medicine Gastroenterology; Physician Assistant; Admitting Provider Internal Medicine; Emergency Provider Student in an Organized Health Care Education/Training Program; PCP Internal Medicine; Visit Provider Internal Medicine
PROC: 0F7D8ZZ Dilation of Pancreatic Duct, Via Natural or Artificial Opening Endoscopic (ICD-10-PCS; CPT 43260; principal; 2020-07-15 12:30)
DX: C25.0 Malignant neoplasm of head of pancreas (principal); F17.210 Nicotine dependence, cigarettes, uncomplicated; Z71.6 Tobacco abuse counseling; Z20.828 Contact with and (suspected) exposure to other viral communicable diseases
CPT/HCPCS: 0241U; 36415; 74177; 74183; 80053; 81003; 82247; 84075; 84450; 84460; 85025; 85610; 85730; 86301; 86704; 86706; 86709; 86803; 87340; 96361; 96374; 99285; A9585; C1769; J1100; J1610; J1650; J1956; J2250; J2270; J2370; J2405; J3010; Q9967

== ENCOUNTER 2020-07-16 11:04 | Emergency (ER) | payer MEDICARE, MEDICAID, SELFPAY ==
[2020-07-16 11:42] VITALS: BP 156/98; PULSE 78; RESP 18; TEMP 37.1; O2SAT 99; BMI 24.2
--- NOTE | 2020-07-16 13:48 | ED.ABDPAIN ---
HPI - Abdominal Pain General Chief Complaint: Abdominal Pain Stated Complaint: remission Time Seen by Provider: 07/16/20 13:42 History of Present Illness HPI narrative: Patient is 44 years old presented today with having abdominal pain. Patient was noted to have a pancreatic mass. Had an ERCP done yesterday. At the time they cannot reach the common bile duct. Patient was supposed to be transferred to [facility] for further ERCP evaluation. Patient refused signed out against medical advice because he failed at the time we did have much pain. Overnight patient had increasing pain. Increasing nausea. Generalized malaise. Came back to the emergency department. The pain is 10/10 it is epigastric in nature associated with nausea vomiting. Patient said he cannot drink a lot of fluid. He is from home. No coughing or congestion or upper respiratory symptoms. Related Data Home Medications Medication Instructions Recorded Confirmed No Known Home Meds 07/14/20 07/14/20 Previous Rx's Medication Instructions Recorded oxycodone 5 mg PO Q6H PRN #14 tab 07/15/20 Allergies Allergy/AdvReac Type Severity Reaction Status Date / Time No Known Allergies Allergy Mild NKA Verified 05/11/20 13:50 Review of Systems Review of Systems Constitutional: No Weight loss, No Fever, No Chills, No Night Sweats, No Fatigue, No Malaise ENT/Mouth: No Hearing loss, No Ear Pain, No Nasal Congestion, No Sinus Pain, No Hoarseness, No sore throat, No Rhinorrhea, No Swallowing Difficulty Eyes: No Eye Pain, No Swelling, No Redness, No Foreign Body, No Discharge, No Vision Changes Cardiovascular: No Chest Pain, No SOB, No Dyspnea on Exertion, No Orthopnea, No Edema, No Palpitations Respiratory: No Cough, No Sputum, No Wheezing, No Smoke Exposure, No Dyspnea Gastrointestinal: Positive Nausea, positive Vomiting, No Diarrhea, No Constipation, positive abdominal Pain, No Hematochezia, No Melena Genitourinary: no irregular bleeding, No Dysuria, No Urinary Frequency, No Hematuria, No Urinary Incontinence, No Urgency, No Flank Pain, No Urinary Flow Changes, No Hesitancy Musculoskeletal: No joint pain, No Myalgias, No Joint Swelling Skin: No Skin Lesions, No rash Neuro: No Weakness, No Numbness, No Paresthesias, No Loss of Consciousness, No Dizziness, No Headache Psych: No Anxiety/Panic, No Depression, No SI/HI/AH/VH, No Social Issues, Heme/Lymph: No Bruising, No Bleeding,No Lymphadenopathy Endocrine: No Polyuria, No Polydipsia, No Temperature Intolerance Physical Exam Vital Signs: Vital Signs: Last Vital Signs Temp 98.7 F 07/16/20 11:42 Pulse 78 07/16/20 11:42 Resp 16 07/16/20 14:02 BP 156/98 H 07/16/20 11:42 Pulse Ox 99 07/16/20 11:42 Body Mass Index 24.2 Appearance: Alert. Oriented X3. No acute distress. Eyes: Pupils equal, round and reactive to light. Positive jaundice ENT: Pharynx normal. Neck: Normal inspection. Neck supple. No lymph nodes noted. No crepitus CVS: Normal heart rate and rhythm. Pulses normal. Normal S1 and S2 Respiratory: No respiratory distress. Breath sounds normal. No Wheezing. No rales Abdomen: Positive epigastric pain. No rigidity. No distention. good BS x4 Skin: Skin warm and dry. Normal skin color. Normal skin turgor. Extremities: No lower extremity edema. Neurovascular intact to all extremities. No Lacerations. No Rash Neuro: Oriented X 3. No motor deficit. No sensory deficit. Moving all extermities. No slurred speech MDM - Abdominal Pain MDM Narrative Medical decision making narrative: Will discuss case with GI. Labs ordered. Patient's labs had elevated lipase. Consistent with some pancreatitis. Discussed with Dr. Edward from GI. [place] patient's case beyond the capability of [facility]. Will transfer to [facility] for further ERCP. Discussed case with [facility] transfer center. Will send patient to the Emergency Department. Accepting physician is Dr. Grider. Case discussed with patient. Risk and benefit of transfer discussed. Patient elected to go to [facility]. Understood the risk of transfer. Lab Data Result diagrams: 07/16/20 13:47 07/16/20 13:47 Labs: Lab Results 07/16/20 07/16/20 07/16/20 Range/Units 13:47 13:47 14:41 WBC 10.3 (4.8-10.8) X10*3/uL RBC 4.14 L (4.60-5.80) X10*6/uL Hgb 13.0 L (14.0-18.0) g/dl Hct 38.5 L (42-52) % MCV 93.0 (80-98) fL MCH 31.4 (27.0-33.0) pg MCHC 33.8 (31.0-36.0) g/dl RDW 14.8 (11.0-16.0) % Plt Count 228 (160-400) X10*3/uL MPV 10.4 (9.4-12.4) fL Immature Gran % (Auto) 0.5 H (0.0-0.4) % Neut % (Auto) 67.1 (45-73) % Lymph % (Auto) 22.5 (20-40) % [place] % (Auto) 8.6 (2-11) % Eos % (Auto) 1.1 (0-4) % Baso % (Auto) 0.2 (0-2) % Lymph # (Auto) 2.3 (1.2-4.9) X10*3/uL [place] # (Auto) 0.9 (0.1-1.2) X10*3/uL Eos # (Auto) 0.1 (0.0-0.4) X10*3/uL Baso # (Auto) 0.0 (0.0-0.2) X10*3/uL Abs Immat Gran (auto) 0.05 H (0.00-0.03) X10*3/uL Absolute Neuts (auto) 6.9 (2.0-8.3) X10*3/uL Absolute Nucleated RBC 0.000 (0.0-0.012) X10*3/uL Nucleated RBC % (auto) 0.0 (0.0-0.2) /100WBC Sodium 140 (135-145) mmol/L Potassium 4.0 (3.3-5.1) mmol/l Chloride 100 (96-108) mmol/L Carbon Dioxide 31 H (22-29) mmol/L Anion Gap 13 (12-20) BUN 11 (9-16) mg/dL Creatinine 0.82 (0.5-1.4) mg/dL Estim Creat Clear Calc 101.5 Estimated GFR > 60 Random Glucose 139 H D (60-115) mg/dL Calcium 8.5 D (8.4-10.2) mg/dL Total Bilirubin 13.1 H (0.0-1.0) mg/dL Direct Bilirubin 9.8 H (0.0-0.5) mg/dL AST 110 H (5-37) U/L ALT 311 H (0-40) U/L Alkaline Phosphatase 239 H (39-117) U/L Total Protein 6.4 L (6.5-8.0) g/dL Albumin 3.7 (3.5-5.0) g/dL Lipase 384 H (8-78) U/L COVID-19 (MISA) Negative (Negative) COVID-19 Clin Com See Note Critical Care Time Critical Care Time Total Critical Care Time: 40 Attestation: I have personally provided 40 minutes of critical care time exclusive of time spent on separately billable procedures. Time includes review of lab data, radiology results, discussion with consultants, and monitoring for potential decompensation. Interventions were performed as documented above Discharge Plan Discharge Clinical Impression: Jaundice, Acute pancreatitis Patient Disposition: Xfer [facility] Prescriptions: No Action No Known Home Meds RF: 0 oxycodone 5 mg tablet 5 mg PO Q6H PRN (Reason: pain) Qty: 14 RF: 0 PMFSH Past Medical History Attestation statement: The following information was validated with the patient. Medical History Asthma Social History Social History Household Members: Significant Other Housing: House Alcohol intake: never Smoking Status: Current every day smoker Smoked in Last 30 Days: No Use of substances other than those prescribed or required for medical reasons: Unknown Substance Use Type: Marijuana Advance Directives: No Advance Directives Information Provided: Yes service: No Current occupational status: disabled
--- NOTE | 2020-07-16 14:01 | MHC.RECOVSUP ---
Recovery Support note: Patient is a 44 year old Armenian speaking male who returned to [facility] ED due to worsening abdominal pain after leaving AMA yesterday. This engineering technical writer spoke with patient prior to his arrival to encourage him to go to [facility] ER as the previous plan was for him to be transferred there. Patient reported that he was coming to [facility] ED as he did not want to go to [facility] first. Patient called this engineering technical writer while he was in the emergency department, bed 15, to report severe pain. This engineering technical writer met with patient who continued to endorse severe abdominal pain. This engineering technical writer informed patient's ED provider and RN.
[2020-07-16 14:02] VITALS: RESP 16
[2020-07-16] MEDS: ondansetron HCL 4 MG/2 ML VIAL IVPUSH (14:02)
[2020-07-16] MEDS: HYDROmorphone HCl 1 MG/ML SYRINGE IVPUSH (14:02)
[2020-07-16 14:15] LABS: MANUAL DIFF FLAG NO
[2020-07-16 14:18] LABS: Basophils Percent Auto 0.2 % (0-2); Eosinophils Absolute Auto 0.1 X10*3/uL (0.0-0.4); Eosinophils Percent Auto 1.1 % (0-4); Hematocrit 38.5 % (42-52); Imm Gran Abs Auto 0.05 X10*3/uL (0.00-0.03); Imm Gran Pct Auto 0.5 % (0.0-0.4); Lymphocytes Absolute Auto 2.3 X10*3/uL (1.2-4.9); Lymphocytes Percent Auto 22.5 % (20-40); Mean Corpuscular HGB Conc 33.8 g/dl (31.0-36.0); Mean Corpuscular Hemoglobin 31.4 pg (27.0-33.0); Mean Platelet Volume 10.4 fL (9.4-12.4); Monocytes Absolute Auto 0.9 X10*3/uL (0.1-1.2); Monocytes Percent Auto 8.6 % (2-11); Neutrophils Absolute Auto 6.9 X10*3/uL (2.0-8.3); Neutrophils Percent Auto 67.1 % (45-73); Platelet Count 228 X10*3/uL (160-400); Red Blood Count 4.14 X10*6/uL (4.60-5.80); Red Cell Distribution Width 14.8 % (11.0-16.0); White Blood Count 10.3 X10*3/uL (4.8-10.8)
[2020-07-16 14:45] LABS: Alanine Aminotransferase 311 U/L (0-40); Albumin Level 3.7 g/dL (3.5-5.0); Alkaline Phosphatase 239 U/L (39-117); Anion Gap 13 (12-20); Aspartate Amino Transferase 110 U/L (5-37); Bilirubin Direct 9.8 mg/dL (0.0-0.5); Bilirubin Total 13.1 mg/dL (0.0-1.0); Blood Urea Nitrogen 11 mg/dL (9-16); Calcium 8.5 mg/dL (8.4-10.2); Carbon Dioxide 31 mmol/L (22-29); Chloride 100 mmol/L (96-108); Creatinine Clr Calc Pharmacy 101.5; Estimated Glomerular Filt Rate > 60; Glucose Random 139 mg/dL (60-115); Sodium 140 mmol/L (135-145); Total Protein 6.4 g/dL (6.5-8.0)
[2020-07-16 14:54] LABS: Lipase 384 U/L (8-78)
[2020-07-16 15:09] LABS: COVID-19 Test Negative (Negative); IDNOW Serial# 9DD0AD1C
[2020-07-16 16:00] VITALS: RESP 18
--- NOTE | 2020-07-16 16:55 | PC.NURSE ---
report given to tommy at [facility]
== END 2020-07-16 16:52 | disposition short-term general hospital (02) ==
PROVIDERS: Emergency Provider Emergency Medicine Emergency Medical Services; PCP Internal Medicine
DX: K85.90 Acute pancreatitis without necrosis or infection, unspecified (principal); R17 Unspecified jaundice; R10.9 Unspecified abdominal pain; F12.90 Cannabis use, unspecified, uncomplicated; F17.200 Nicotine dependence, unspecified, uncomplicated; Z20.828 Contact with and (suspected) exposure to other viral communicable diseases; Z71.6 Tobacco abuse counseling; Z79.899 Other long term (current) drug therapy
CPT/HCPCS: 36415; 80048; 80076; 83690; 85025; 87635; 96374; 96375; 99285; 99291; J1170; J2405

== ENCOUNTER 2021-06-29 14:36 | Outpatient (REF) | payer OTHER, SELFPAY ==
[2021-06-29 18:35] LABS: Amphetamine Screen Urine Not Detected (Not Detect); Barbiturates, Urine Not Detected (Not Detect); Benzodiazepines Screen Urine Not Detected (Not Detect); Cannabinoid Screen Urine POSITIVE (Not Detect); Cocaine Screen Urine POSITIVE (Not Detect); Fentanyl, urine Not Detected (Not Detect); Opiate Screen Urine Not Detected (Not Detect); Phencyclidine Screen Urine Not Detected (Not Detect)
== END 2021-06-29 14:37 | disposition home or self-care (01) ==
LOC: HO.LAB 14:36
PROVIDERS: PCP Internal Medicine; Visit Provider Internal Medicine
DX: F11.90 Opioid use, unspecified, uncomplicated (principal)
CPT/HCPCS: 80307

== ENCOUNTER → 2021-11-18 11:11 | Outpatient (BNVA) | payer OTHER, SELFPAY | PROVIDERS: PCP Internal Medicine; Referring Provider Internal Medicine; Visit Provider Surgery | DX: K40.90 Unilateral inguinal hernia, without obstruction or gangrene, not specified as recurrent (principal); C25.9 Malignant neoplasm of pancreas, unspecified | CPT/HCPCS: 99202 ==